=== PATIENT | male | born 1970 | race Caucasian/White ===

== ENCOUNTER 2016-11-28 06:58 | Inpatient (IN) | payer BC ==
[2016-11-23 18:11] LABS: BASOPHILS 0.2 %; BASOPHILS ABSOLUTE 0.01 10/3/uL (0.0-0.16); EOSINOPHILS 3.6 %; EOSINOPHILS ABSOLUTE 0.21 10/3/uL (0.0-0.53); HEMATOCRIT 41.3 % (40.0-51.0); IMMATURE GRANULOCYTES 0.2 %; IMMATURE GRANULOCYTES ABSOLUTE 0.01 10/3/uL (0.0-0.11); LYMPHOCYTES 36.9 %; LYMPHOCYTES ABSOLUTE 2.13 10/3/uL (0.67-4.30); MANUAL DIFF NO %; MEAN CORPUS HGB CONC 33.9 g/dL (32.0-36.0); MEAN CORPUSCULAR HEMOGLOB 28.8 pg (26.0-34.0); MEAN PLATELET VOLUME 10.7 fL (9.2-13.0); MONOCYTES ABSOLUTE 0.29 10/3/uL (0.21-1.20); NEUTROPHILS 54.1 %; NEUTROPHILS ABSOLUTE 3.12 10/3/uL (2.02-8.40); PLATELET COUNT 222 10/3/uL (150-400); RBC DISTRIBUTION WIDTH 12.9 % (12.0-16.0); RED CELL COUNT 4.86 10/6/uL (4.7-6.1); WHITE BLOOD CELLS 5.8 10/3/uL (4.5-10.5)
[2016-11-23 18:29] LABS: A/G RATIO 1.4 (0.7-1.9); ALBUMIN 4.6 G/DL (3.5-5.0); ALKALINE PHOSPHATASE 80 U/L (45-117); CHLORIDE, SERUM 104 MMOL/L (96-112); CO2 (CARBON DIOXIDE) 26 MMOL/L (24-34); CREATININE 0.72 MG/DL (0.70-1.30); GFR AFRICAN AMERICAN 128 ML/MIN (>=60); GFR NON AFRICAN AMERICAN 110 ML/MIN (>=60); GLOBULIN 3.2 G/DL (2.5-4.1); GLUCOSE, SERUM 152 MG/DL (60-99); IRON BINDING CAPACITY 459 MCG/DL (250-450); POTASSIUM, SERUM 4.6 MMOL/L (3.5-5.3); SGOT(AST) 45 U/L (5-40); SGPT(ALT) 70 U/L (5-65); SODIUM, SERUM 137 MMOL/L (135-148); TOTAL BILIRUBIN 0.6 MG/DL (0-1.2); TOTAL PROTEIN 7.8 G/DL (6.0-8.5)
[2016-11-23 18:30] LABS: BUN (BLOOD UREA NITROGEN) 17 MG/DL (6-23)
[2016-11-23 18:56] LABS: ASCORBIC ACID (UR NOT ORDER) 40 (NEG); BILIRUBIN, URINE NEGATIVE (NEG); KETONE, URINE TRACE MG/DL (NEG); LEUKOCYTE ESTERASE(NOT OR NEG (NEG); WBC (NOT ORDERED) (RFLEX) 1 (0-5)
--- NOTE | ~2016-11-28 | OP ---
Record Of Operation [facility] [address] [place]. [address] NAME: LITZY CONTEH : 66 STATUS : ADM IN PAT#: [id number] AGE: 46 ADM/REG DATE : 11/28/16 MR#: [id number] REPORT SERV DATE: 12/03/16 DICTATED BY: LITZY SALDAÑA DATE: 12/03/16 REPORT STATUS : Draft TRANSCRIBED BY: MODL DATE: 12/03/16 DATE OF PROCEDURE: 11/28/2016 PREOPERATIVE DIAGNOSES: 1. Aortic valve stenosis with insufficiency. 2. Bicuspid aortic valve. 3. Type 2 cqz-aknbzqu-idmajprrq diabetes mellitus. 4. Hypertension. 5. Hyperlipidemia. 6. Obesity. 7. Syncope. POSTOPERATIVE DIAGNOSES: 1. Aortic valve stenosis with insufficiency. 2. Bicuspid aortic valve. 3. Type 2 dvg-gkiqfww-vdefctotb diabetes mellitus. 4. Hypertension. 5. Hyperlipidemia. 6. Obesity. 7. Syncope. PROCEDURE PERFORMED: 1. Minimally invasive aortic valve replacement using a 27 mm pericardial valve (Magna Ease). 2. Internal rigid fixation of the sternum using titanium plate and screws. 3. Transesophageal echocardiography. SURGEON: Litzy Saldaña M.D. ASSISTANTS: Shannan Osullivan and Cortez Mcghee. ANESTHESIA: General with Dr. Mayen. ELEVATOR WORKER: Gabino Talley M.D. INDICATIONS: This is a 46-year-old gentleman, who has a history of a heart murmur and known aortic valve stenosis with bicuspid valve. His gradient across this valve has been worsening. Most recent valve area was 0.9 sq cm. Peak velocity across the valve is 4.3 m/sec. At catheterization, his valve area was estimated at 0.8 cm2 with PA pressures that were mildly elevated at 35 or 20. We saw the patient in our office and discussed possible aortic valve replacement. After lengthy discussion of operations, its indication and risks, he wished to proceed. Preoperative STS risk of mortality less than 2% and morbidity mortality less than 10% were shared with the patient and family. The patient preferred a tissue prosthesis. FINDINGS AT OPERATION: Record Of Operation [facility] [address] [place]. [address] NAME: LITZY CONTEH : 66 STATUS : ADM IN PAT#: [id number] AGE: 46 ADM/REG DATE : 11/28/16 MR#: [id number] REPORT SERV DATE: 12/03/16 DICTATED BY: LITZY SALDAÑA DATE: 12/03/16 REPORT STATUS : Draft TRANSCRIBED BY: GELA DATE: 12/03/16 1. Cross-clamp 100 minutes. Total pump time 137 minutes. Mcc solution was used. 2. The patient had a bicuspid aortic valve with three rudimentary commissural posts. There was complete fusion of the left and right coronary cusps. Coronary anatomy was relatively normal. There was mild dilation of the noncoronary sinus, but no aneurysm formation was noted. 3. A 27 mm pericardial valve was implanted (Magna Ease). Eighteen Cor-Knots were used to secure this valve in place. 4. We used a large titanium ladder plate with twelve 12 mm screws to reapproximate the sternum. 5. Transesophageal echocardiography at operation demonstrated severe LVH. Normal left ventricular function. Aortic prosthesis was well seated without perivalvular leak. There was no significant mitral insufficiency. PATHOLOGIC SPECIMENS: Include aortic valve leaflets. DESCRIPTION OF PROCEDURE: The patient was brought to the operating suite. General anesthesia was induced. Airway was secured with an endotracheal tube. Lines were secured by Anesthesia. Staples catheter was placed. The patient's chest, abdomen, groin, and legs were prepped with Hibiclens and ChloraPrep, and draped with Ioban sterile sheets. SAMUEL probe was placed by Dr. Bearden, and examination carried out as discussed above. An upper midline partial sternal incision was made just about 6-8 cm in length. This was carried through subcutaneous tissue and down to the sternum. We then divided the sternum from the sternal notch down to the first intercostal space below the angle of Alek. The sternum was transected horizontally at this point. Then, a retractor was placed. Lines were passed on the field for cardiopulmonary bypass and cleared of air. The pericardium was opened from the innominate vein down to the limits of this partial sternotomy and then tacked to the sides of the chest wall. Heparin was administered by Anesthesia. Cannulation pursestring sutures were placed and cannulation was carried out in routine manner. The aorta was then cross clamped. Initial dose of cold crystalloid cardioplegia was given in an antegrade fashion down the aortic root. An LV vent was placed through the right superior pulmonary vein and directed into the left ventricle through the mitral valve and secured. Following the first dose of cardioplegia, a hockey-stick type aortotomy incision was made. The aortic valve and the aortic root was inspected as discussed above. This was a bicuspid valve with heavy calcifications and stenosis. The aortic valve was excised and calcifications were removed from the annulus and some of the calcifications had descended onto the anterior leaflet of the mitral valve were likewise removed. Once the annulus was completely debrided of all calcium, the ascending aorta and left ventricle were irrigated copiously with iced saline to remove any particular matter. Coronary anatomy appeared relatively normal. There were three rudimentary cuffs. Then, the valve was sized. A 27 mm pericardial valve was selected (Magna Ease). Interrupted pledgeted horizontal mattress sutures of 2-0 Tycron placed circumferentially about the mitral valve annulus. Pledgets were on the ventricular side. The sutures were passed through the sewing cuff of the valve. This was lowered into position and each of the sutures individually secured and divided using a Cor-Knot device. A total of 18 Cor-Knots were utilized. We then inspected the valve, appeared to be well seated and there was no obstruction of the coronary vessels. Record Of Operation [address] [place]. [address] NAME: LITZY CONTEH JR : 66 STATUS : ADM IN [facility]#: [id number] AGE: 46 ADM/REG DATE : 11/28/16 MR#: [id number] REPORT SERV DATE: 12/03/16 DICTATED BY: LITZY SALDAÑA DATE: 12/03/16 REPORT STATUS : Draft TRANSCRIBED BY: MODL DATE: 12/03/16 Warming was begun. The aortotomy incision was then closed in a two-layer fashion with running pledgeted suture of 5-0 Prolene. The patient was placed in Trendelenburg. The ascending aorta and left ventricle were de- aired. The aortic cross-clamp was removed. Suture lines were inspected and made hemostatic. Ventilation was begun. Ventricular and atrial pacing wires were placed and the heart was initially paced in AV sequential fashion, this was later changed to atrial pacing only at a rate of 80. When the heart demonstrated good contractility, it was allowed to fill and eject. When deairing was completed, the patient was taken out of Trendelenburg and LV vent removed and these pursestring sutures tied. The ascending aortic vent was likewise removed and these pursestring sutures tied and reinforced. The patient was weaned from cardiopulmonary bypass with minimal inotropic support. The venous cannula was removed and these pursestring sutures tied. SAMUEL examination demonstrated good ventricular function with an aortic valve prosthesis that was well seated without perivalvular leak. There was no significant mitral insufficiency. Protamine was administered by Anesthesia and following a period of hemodynamic stability, the aortic cannula was removed and these pursestring sutures tied and reinforced. The patient continued do well and chest was irrigated copiously with saline. Meticulous hemostasis was obtained. Hemasorb was placed along the cut edges of the sternum. Then, a 32-Chadian chest tube was placed in the right pleural cavity and brought into the upper middle mediastinum and secured to the chest wall. The partial sternotomy was then closed. Four sternal wires were utilized to reapproximate the sternum longitudinally. The transverse sternotomy was reapproximated and this was held in place with a large ladder plate and 12 titanium screws. The clavipectoral fascia was reapproximated with #1 Stratafix. The subcutaneous tissue was closed and skin was closed in subcuticular fashion. The patient tolerated the procedure well. There were no complications. Sponge and needle counts were correct. DISPOSITION: The patient was left intubated, sedated, and transported to the Intensive Care Unit in stable condition. KINGSTON/GELA Litzy Saldaña M.D. / [id number] Record Of Operation [address] [address] NAME: CONTEHLITZY JR : 66 STATUS : ADM IN [facility]#: [id number] AGE: 46 ADM/REG DATE : 11/28/16 MR#: [id number] REPORT SERV DATE: 12/03/16 DICTATED BY: LITZY SALDAÑA DATE: 12/03/16 REPORT STATUS : Draft TRANSCRIBED BY: GELA DATE: 12/03/16 CC: Litzy Saldaña M.D. Jude Plunkett M.D. Gabino Talley M.D.
--- NOTE | ~2016-11-28 | HP ---
History And Physical [place] [id number] [facility] [place]. [address] NAME: LITZY CONTEH JR : 66 STATUS : ADM IN [facility]#: [id number] AGE: 46 ADM/REG DATE : 11/28/16 MR#: [id number] REPORT SERV DATE: 11/29/16 DICTATED BY: BARRINGTON ARMSTRONG DATE: 11/29/16 REPORT STATUS : Draft TRANSCRIBED BY: MODMahnaz DATE: 11/29/16 DATE OF ADMISSION: 11/28/2016 REASON FOR CONSULTATION: Diabetic management. HISTORY OF PRESENT ILLNESS: This is a pleasant 46-year-old white male, who reports that his primary care, who is Dr. Jude Plunkett, heard a heart murmur on exam and followed this closely for some time, but eventually, he was referred to dry room attendant, Dr. Talley, whom he saw in 07/2016. Testing was performed showing a bicuspid aortic valve. He was subsequently referred to Dr. Saldaña, and is now status post a minimally invasive aortic valve replacement. He states that he was experiencing some progressively worsening activity intolerance and dyspnea with exertion and also had had some fainting spells, but denied any chest pain, denied any edema development as well. As stated, hospitalist has been consulted for diabetic management post surgery. PAST MEDICAL HISTORY: Includes hypertension, diabetes, seasonal allergies, arthritis, GERD. SURGICAL HISTORY: Ulnar nerve surgery bilaterally, cholecystectomy, and left shoulder surgery for a bone spur. SOCIAL HISTORY: He works as a electromechanical assembly technician. FAMILY HISTORY: On mother's side, diabetes. On father's side, coronary artery disease. MEDICATIONS: For his diabetes, he was only on metformin at home 500 mg twice a day. ALLERGIES: HE HAS NO KNOWN ALLERGIES. REVIEW OF SYSTEMS: 10 points negative except for pertinents that are mentioned in the above HPI. PHYSICAL EXAMINATION: GENERAL: He is alert and oriented x3. No focal deficits. He is drowsy, but cooperative and awake when spoken to. EYES: PERRLA is noted. Sclerae are clear. LUNGS: Clear, but somewhat diminished in the bases, otherwise, normal respiratory effort. CARDIOVASCULAR: No murmurs, rubs, or gallops appreciable. Regular rate and rhythm, sinus per the monitor. ABDOMEN: Soft and nontender with hypoactive bowel sounds. EXTREMITIES: He has some trace lower extremity edema, very minimal. Normal distal pulses. SKIN: Warm and dry. Blood. LABORATORY DATA: Blood sugars reviewed past 6 hours are 118, 119, 110, 105, 112, 116, and 108. Hemoglobin A1c of 7.8. He did receive 500 mg IV Solu-Medrol perioperatively. ASSESSMENT: History And Physical [address]. [address] NAME: LITZY CONTEH JR : 66 STATUS : ADM IN PAT#: [id number] AGE: 46 ADM/REG DATE : 11/28/16 MR#: [id number] REPORT SERV DATE: 11/29/16 DICTATED BY: BARRINGTON ARMSTRONG DATE: 11/29/16 REPORT STATUS : Draft TRANSCRIBED BY: GELA DATE: 11/29/16 1. Diabetes type 2. A1c is 7.8. 2. Bicuspid aortic valve, aortic stenosis and insufficiency, status post minimally invasive AVR. 3. Hypertension history. 4. Gastroesophageal reflux disease. PLAN: We will utilize IV insulin and subcutaneous insulin via the order set with hopes of transitioning off IV insulin within the next 24 hours, but he is requiring a tremendous amount of IV insulin approximately 240 units in the past 24 hours. Hopefully, we will be able to resume metformin in the next day or so, and plan at this point is no insulin, but likely we will increase his metformin at discharge to 1000 mg twice a day. Otherwise, he is being monitored by Cardiology and Cardiothoracic Surgery, mobilization, incentive spirometry, and some diuresis today. We thank you for this consultation and we will follow along with you. JEANNA/EGLA Barrington Armstrong NP / [id number] CC: Litzy Saldaña M.D.
--- NOTE | ~2016-11-28 | HP ---
History And Physical [place] [id number] [facility] [place]. [address] NAME: LITZY CONTEH JR : 66 STATUS : DIS IN PAT#: [id number] AGE: 46 ADM/REG DATE : 11/28/16 MR#: [id number] REPORT SERV DATE: 01/30/17 DICTATED BY: ESTHER SCRUGGS DATE: 01/29/17 REPORT STATUS : Draft TRANSCRIBED BY: MODMahnaz DATE: 01/29/17 DATE OF ADMISSION: 11/28/2016 CHIEF COMPLAINT: Syncopal episode. HISTORY OF PRESENT ILLNESS: Mr. Conteh is a pleasant 46-year-old, obese white male, who works at [employer] in [place]. The patient was noted to have a heart murmur by his primary care physician, Dr. Jude Plunkett. He underwent further testing with echocardiogram and CTA of the chest. On echocardiogram, he was noted to have significant aortic valve stenosis with aortic valve area calculated at 0.9 sq cm and peak velocity across the valve of 4.3 m/sec. The valve was also noted to be bicuspid and severely calcified. He did have a CT of the chest that demonstrated a heavily calcified aortic valve. There was no evidence of ascending aortic aneurysm or dilated aortic root. There was also no evidence of dissection. The patient was referred to Dr. Saldaña by Dr. Gabino Talley and underwent coronary artery arteriogram and was noted to have severe aortic valve stenosis with a valve area of 0.8 sq cm, mean aortic valve gradient was 48 mmHg, PA pressures were mildly elevated at 35/20. The patient was asked to be seen in the office for possible aortic valve replacement. 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 During one of his trips within the last several months, he was noted to have a syncopal episode. He thinks that he has had anywhere from three to four syncopal episodes over the past 10-year period. These all occurred while he was participating in air travel for his job. The patient also has a history of dyspnea on exertion and fatigue. He denies anginal symptoms. He states that his shortness of breath symptoms resolved with rest. He denies signs and symptoms of stroke, orthopnea, paroxysmal nocturnal dyspnea, palpitations, or peripheral edema. He states that he does not have a family history of aortic valve problem. PAST MEDICAL HISTORY: Significant for: 1. Obesity. 2. Aortic stenosis. 3. Hypertension. 4. Dyslipidemia. 5. Type 2 diabetes mellitus. 6. Syncope. FAMILY HISTORY: He has a mother, who has a history of both diabetes and hypertension. His mother is still alive. SOCIAL HISTORY: The patient is , and he does use tobacco on occasion. He does consume alcohol on occasional basis. He denies history of illicit drug use. He does consume caffeine and drinks tea anywhere from two cups a day of tea or coffee. ALLERGIES: NO KNOWN ALLERGIES. MEDICATIONS: Current list of medications includes: History And Physical [address] [address] NAME: LITZY CONTEH JR : 66 STATUS : DIS IN [facility]#: [id number] AGE: 46 ADM/REG DATE : 11/28/16 MR#: [id number] REPORT SERV DATE: 01/30/17 DICTATED BY: ESTHER SCRUGGS DATE: 01/29/17 REPORT STATUS : Draft TRANSCRIBED BY: GELA DATE: 01/29/17 1. Aspirin 81 mg once daily. 2. CoQ10 daily. 3. Metformin 500 mg twice daily with meals. 4. Metformin 25 mg twice daily. 5. Multivitamin one tablet daily. 6. Naproxen 250 mg three times daily with food. 7. Niacin 500 mg daily. 8. Omeprazole 20 mg delayed release. 9. Tekturna 300 mg daily. 10.Tizanidine 4 mg as needed. 11.Vitamin C 500 mg daily. 12.Zyrtec 10 mg one tablet daily. REVIEW OF SYSTEMS: CONSTITUTIONAL: Negative for fever. EYES: Negative for visual changes. ENT: Negative for hearing loss. RESPIRATORY: Negative for snoring or hemoptysis. CARDIOLOGY: Negative for diaphoresis. Positive for syncope and near syncopal episodes. VASCULAR: Negative for claudication or edema. GASTROINTESTINAL: Negative for reflux or bleeding. GENITOURINARY: Negative for hematuria or nocturia. ENDOCRINE: Negative for goiter or tremors. NEUROLOGIC: Negative for dizziness, memory loss, or seizures. PSYCHIATRIC: Negative for hallucination. DERMATOLOGICAL: Negative for rash or skin sores. MUSCULOSKELETAL: Negative for joint pain or myalgias. HEMATOLOGY: Negative for acute anemia or thrombocytopenia. PHYSICAL EXAMINATION: VITAL SIGNS: Include pulse rate of 82, blood pressure of 137/91 in the sitting position, and the patient's respiratory rate is 16. His weight is 70 inches and he is 225 pounds with a calculated BMI of 32.5. CONSTITUTIONAL: No acute distress. He is well nourished and well developed. EYES: He has bilateral normal conjunctivae. Clear sclera bilaterally. Pupils are equal, round, and reactive to light. NOSE AND MOUTH: He has moist oral mucosa without any cyanosis or pallor. NECK: His thyroid shows no evidence of enlargement. He has normal neck range of motion and no evidence of jugular vein distention. RESPIRATORY: His respirations are nonlabored. He has clear breath sounds throughout. He is absent of wheezes, rhonchi, or rale. HEART: Rhythm is regular. His PMI is nondisplaced. He has normal S1 and S2 heart sounds. He does have a three to four systolic ejection murmur at the right upper sternal border. VASCULAR: Carotid: He has normal 2+ carotid pulses bilaterally without any evidence of any murmur. He has normal dorsalis pedis and posterior tibial pulses. ABDOMEN: His abdomen is soft, round, and nontender without any evidence of hepatic or splenomegaly. He has active bowel sounds. History And Physical [address] [address] NAME: LITZY CONTEH JR : 66 STATUS : DIS IN PAT#: [id number] AGE: 46 ADM/REG DATE : 11/28/16 MR#: [id number] REPORT SERV DATE: 01/30/17 DICTATED BY: ESTHER SCRUGGS DATE: 01/29/17 REPORT STATUS : Draft TRANSCRIBED BY: MODL DATE: 01/29/17 SKIN: Warm, dry, and intact. There is no evidence of any bruising, ulcers, or venous stasis. MUSCULOSKELETAL: The patient has a normal gait and is able to exercise. EXTREMITIES: Without any lower extremity edema, ischemic ulcers, or evidence of cyanosis or clubbing. NEUROLOGIC: He is awake, alert, and oriented x3 without any altered level of consciousness noted. PSYCHIATRIC: He is oriented to time, person, place, and he has appropriate mood and affect. IMPRESSION: 1. Nonrheumatic aortic valve disease. 2. Type 2 diabetes mellitus without complications. 3. Hypertension. 4. Hyperlipidemia. 5. Syncope. 6. Obesity. PLAN: The patient is a 46-year-old, healthy, type 2 jcm-fzkuofv-osxvzhdqn diabetic with moderate obesity and severe aortic valve stenosis and possible bicuspid aortic valve. The patient has preserved ejection fraction on echocardiogram at 60%. At this time, the patient was noted to be a good candidate for TAVR as he has STS score with a predictive risk of only 0.47% and a mortality risk of 6.4%. Dr. Saldaña discussed with the patient in the office and the need for a minimally invasive aortic valve replacement as well as a rigid fixation of the sternum and application of titanium plate and screws with intraoperative transesophageal echocardiogram. The risks were discussed with the patient, and they include bleeding, infection, pneumonia, blood transfusion, kidney or liver damage, arrhythmias, need for pacemaker, heart attack, stroke, mediastinitis, and DVT with pulmonary emboli, and among other complications. The patient verbalizes understanding of these risks and is willing to proceed further with surgery. At this time, surgery has been scheduled at [facility] for 11/28/2016. LAITH/GELA Esther Scruggs NP / [id number] CC: Meggan Sanchez M.D.
[~2016-11-28 06:58] MED LIST: ASAB PO; CO Q-10100 MG PO; GLUCPH PO; LOP25 PO; MULTIPLE VIT PO; NAP250 PO; NIACIN 500 PO; PRILO PO; TEKTURNA300 MG PO; ZANAFLEX 4 MG TA4 MG PO; ZYRTEC ALLGY10 MG PO
[2016-11-28 14:52] LABS: BE (BASE EXCESS) -4.4 MEQ/L (0 +/- 2.5); CARBOXYHEMOGLOBIN 0.3 % (0-3); HCO3 (ACTUAL BICARBONATE) 20.6 MEQ/L (23-27); HEMOBLOGIN CONTENT 13.5 G/DL (14-18); INSTRUMENT SERIAL # 11843; METHEMOGLOBIN 0.6 % (0-3); MODE SIMV; O2 CONTENT 18.8 VOL% (18-24); OPERATOR ID 32214; PCO2 (CO2 TENSION) 38 MMHG (35-45); PO2 (O2 TENSION) 157 MMHG (79-93); PRESSURE SUPPORT 7 cm.H2O; SAMPLE Arterial; TIDAL VOLUME 700 ML; pH 7.35 (7.37-7.43)
[2016-11-28 15:27] LABS: HEMATOCRIT 37.3 % (40.0-51.0); HEMOGLOBIN 12.5 g/dL (13.6-17.8)
[2016-11-28 15:31] LABS: PLATELET COUNT 137 10/3/uL (150-400)
[2016-11-28 15:32] LABS: INTERNATIONAL NORMAL RATI 1.4 UNITS (-); PARTIAL THROMBO TIME 38.5 SEC (22.5-37.2); PROTIME (NOT ORD) 17.2 SEC (12.0-14.5)
[2016-11-28 15:38] LABS: BUN (BLOOD UREA NITROGEN) 12 MG/DL (6-23); CALCIUM, SERUM 7.9 MG/DL (8.5-10.4); CHLORIDE, SERUM 110 MMOL/L (96-112); CO2 (CARBON DIOXIDE) 22 MMOL/L (24-34); CREATININE 0.88 MG/DL (0.70-1.30); GFR AFRICAN AMERICAN 118 ML/MIN (>=60); GFR NON AFRICAN AMERICAN 102 ML/MIN (>=60); GLUCOSE, SERUM 137 MG/DL (60-99); POTASSIUM, SERUM 4.3 MMOL/L (3.5-5.3); SODIUM, SERUM 140 MMOL/L (135-148)
[2016-11-28 18:43] LABS: ALLENS TEST Pos; BE (BASE EXCESS) -4.4 MEQ/L (0 +/- 2.5); CARBOXYHEMOGLOBIN 0.3 % (0-3); DEVICE NC; HEMOBLOGIN CONTENT 14.3 G/DL (14-18); INSTRUMENT SERIAL # 11843; METHEMOGLOBIN 0.6 % (0-3); OPERATOR ID 32214; PCO2 (CO2 TENSION) 40 MMHG (35-45); PO2 (O2 TENSION) 82 MMHG (79-93); SAMPLE Arterial; pH 7.34 (7.37-7.43)
[2016-11-28 21:21] LABS: HEMATOCRIT 38.4 % (40.0-51.0); HEMOGLOBIN 13.1 g/dL (13.6-17.8)
[2016-11-28 21:37] LABS: BUN (BLOOD UREA NITROGEN) 13 MG/DL (6-23); CHLORIDE, SERUM 109 MMOL/L (96-112); CO2 (CARBON DIOXIDE) 19 MMOL/L (24-34); CREATININE 0.78 MG/DL (0.70-1.30); GFR AFRICAN AMERICAN 124 ML/MIN (>=60); GFR NON AFRICAN AMERICAN 107 ML/MIN (>=60); GLUCOSE, SERUM 154 MG/DL (60-99); SODIUM, SERUM 136 MMOL/L (135-148)
[2016-11-28 21:38] LABS: CALCIUM, SERUM 8.9 MG/DL (8.5-10.4)
[2016-11-29 03:26] LABS: BASOPHILS 0 %; EOSINOPHILS 0 %; HEMATOCRIT 37.3 % (40.0-51.0); HEMOGLOBIN 12.9 g/dL (13.6-17.8); IMMATURE GRANULOCYTES 0.4 %; IMMATURE GRANULOCYTES ABSOLUTE 0.04 10/3/uL (0.0-0.11); LYMPHOCYTES 6.3 %; LYMPHOCYTES ABSOLUTE 0.68 10/3/uL (0.67-4.30); MANUAL DIFF NO %; MEAN CORPUS HGB CONC 34.6 g/dL (32.0-36.0); MEAN CORPUSCULAR HEMOGLOB 29.4 pg (26.0-34.0); MEAN PLATELET VOLUME 10.4 fL (9.2-13.0); MONOCYTES 9.2 %; NEUTROPHILS 84.1 %; NEUTROPHILS ABSOLUTE 9.15 10/3/uL (2.02-8.40); PLATELET COUNT 179 10/3/uL (150-400); RBC DISTRIBUTION WIDTH 12.6 % (12.0-16.0); RED CELL COUNT 4.39 10/6/uL (4.7-6.1); WHITE BLOOD CELLS 10.9 10/3/uL (4.5-10.5)
[2016-11-29 03:38] LABS: CALCIUM, SERUM 8.6 MG/DL (8.5-10.4); CHLORIDE, SERUM 110 MMOL/L (96-112); CREATININE 0.78 MG/DL (0.70-1.30); GFR AFRICAN AMERICAN 124 ML/MIN (>=60); GFR NON AFRICAN AMERICAN 107 ML/MIN (>=60); POTASSIUM, SERUM 4.5 MMOL/L (3.5-5.3); SODIUM, SERUM 138 MMOL/L (135-148)
[2016-11-29 03:39] LABS: BUN (BLOOD UREA NITROGEN) 17 MG/DL (6-23); CO2 (CARBON DIOXIDE) 23 MMOL/L (24-34); GLUCOSE, SERUM 115 MG/DL (60-99)
[2016-11-29 17:22] LABS: HEMATOCRIT 34.7 % (40.0-51.0); HEMOGLOBIN 11.7 g/dL (13.6-17.8)
[2016-11-30 05:02] LABS: BASOPHILS 0.1 %; BASOPHILS ABSOLUTE 0.01 10/3/uL (0.0-0.16); EOSINOPHILS 0 %; HEMATOCRIT 33.6 % (40.0-51.0); HEMOGLOBIN 11.3 g/dL (13.6-17.8); IMMATURE GRANULOCYTES 0.2 %; IMMATURE GRANULOCYTES ABSOLUTE 0.03 10/3/uL (0.0-0.11); LYMPHOCYTES 8.7 %; LYMPHOCYTES ABSOLUTE 1.11 10/3/uL (0.67-4.30); MEAN CORPUS HGB CONC 33.6 g/dL (32.0-36.0); MEAN CORPUSCULAR HEMOGLOB 29.3 pg (26.0-34.0); MONOCYTES 12.1 %; MONOCYTES ABSOLUTE 1.54 10/3/uL (0.21-1.20); NEUTROPHILS 78.9 %; NEUTROPHILS ABSOLUTE 10.01 10/3/uL (2.02-8.40); PLATELET COUNT 160 10/3/uL (150-400); RBC DISTRIBUTION WIDTH 13.3 % (12.0-16.0); RED CELL COUNT 3.86 10/6/uL (4.7-6.1); WHITE BLOOD CELLS 12.7 10/3/uL (4.5-10.5)
[2016-11-30 05:03] LABS: MANUAL DIFF NO %
[2016-11-30 05:18] LABS: CALCIUM, SERUM 8.5 MG/DL (8.5-10.4); CHLORIDE, SERUM 105 MMOL/L (96-112); CO2 (CARBON DIOXIDE) 24 MMOL/L (24-34); CREATININE 0.76 MG/DL (0.70-1.30); GFR AFRICAN AMERICAN 125 ML/MIN (>=60); GFR NON AFRICAN AMERICAN 108 ML/MIN (>=60); POTASSIUM, SERUM 4.7 MMOL/L (3.5-5.3); SODIUM, SERUM 133 MMOL/L (135-148)
[2016-11-30 05:22] LABS: BUN (BLOOD UREA NITROGEN) 24 MG/DL (6-23); GLUCOSE, SERUM 162 MG/DL (60-99)
[2016-12-01 05:11] LABS: BASOPHILS 0.1 %; BASOPHILS ABSOLUTE 0.01 10/3/uL (0.0-0.16); EOSINOPHILS 0.1 %; EOSINOPHILS ABSOLUTE 0.01 10/3/uL (0.0-0.53); HEMATOCRIT 32.4 % (40.0-51.0); HEMOGLOBIN 10.7 g/dL (13.6-17.8); IMMATURE GRANULOCYTES 0.2 %; IMMATURE GRANULOCYTES ABSOLUTE 0.03 10/3/uL (0.0-0.11); LYMPHOCYTES 15.4 %; LYMPHOCYTES ABSOLUTE 1.97 10/3/uL (0.67-4.30); MEAN CORPUSCULAR HEMOGLOB 28.8 pg (26.0-34.0); MEAN CORPUSCULAR VOLUME 87.1 fL (80-100); MEAN PLATELET VOLUME 11.4 fL (9.2-13.0); MONOCYTES 12.1 %; MONOCYTES ABSOLUTE 1.55 10/3/uL (0.21-1.20); NEUTROPHILS 72.1 %; NEUTROPHILS ABSOLUTE 9.26 10/3/uL (2.02-8.40); PLATELET COUNT 204 10/3/uL (150-400); RBC DISTRIBUTION WIDTH 13.5 % (12.0-16.0); RED CELL COUNT 3.72 10/6/uL (4.7-6.1); WHITE BLOOD CELLS 12.8 10/3/uL (4.5-10.5)
[2016-12-01 05:20] LABS: MANUAL DIFF NO %
[2016-12-01 05:24] LABS: BUN (BLOOD UREA NITROGEN) 26 MG/DL (6-23); CALCIUM, SERUM 9.1 MG/DL (8.5-10.4); CHLORIDE, SERUM 99 MMOL/L (96-112); CO2 (CARBON DIOXIDE) 27 MMOL/L (24-34); CREATININE 0.87 MG/DL (0.70-1.30); GFR AFRICAN AMERICAN 118 ML/MIN (>=60); GFR NON AFRICAN AMERICAN 102 ML/MIN (>=60); GLUCOSE, SERUM 172 MG/DL (60-99); POTASSIUM, SERUM 5.1 MMOL/L (3.5-5.3); SODIUM, SERUM 133 MMOL/L (135-148)
[2016-12-01 12:52] LABS: INTERNATIONAL NORMAL RATI 1.2 UNITS (-); PROTIME (NOT ORD) 15.2 SEC (12.0-14.5)
[2016-12-02 04:35] LABS: BASOPHILS 0 %; EOSINOPHILS 0.7 %; EOSINOPHILS ABSOLUTE 0.08 10/3/uL (0.0-0.53); HEMATOCRIT 30.9 % (40.0-51.0); HEMOGLOBIN 10.4 g/dL (13.6-17.8); IMMATURE GRANULOCYTES 0.3 %; IMMATURE GRANULOCYTES ABSOLUTE 0.03 10/3/uL (0.0-0.11); LYMPHOCYTES 20.2 %; LYMPHOCYTES ABSOLUTE 2.36 10/3/uL (0.67-4.30); MEAN CORPUS HGB CONC 33.7 g/dL (32.0-36.0); MEAN CORPUSCULAR HEMOGLOB 29.1 pg (26.0-34.0); MEAN CORPUSCULAR VOLUME 86.3 fL (80-100); MONOCYTES 11.4 %; MONOCYTES ABSOLUTE 1.33 10/3/uL (0.21-1.20); NEUTROPHILS 67.4 %; NEUTROPHILS ABSOLUTE 7.87 10/3/uL (2.02-8.40); PLATELET COUNT 238 10/3/uL (150-400); RBC DISTRIBUTION WIDTH 13.4 % (12.0-16.0); RED CELL COUNT 3.58 10/6/uL (4.7-6.1); WHITE BLOOD CELLS 11.7 10/3/uL (4.5-10.5)
[2016-12-02 04:36] LABS: INTERNATIONAL NORMAL RATI 1.2 UNITS (-); PROTIME (NOT ORD) 15.5 SEC (12.0-14.5)
[2016-12-02 04:43] LABS: MANUAL DIFF NO %
[2016-12-02 04:45] LABS: CALCIUM, SERUM 9.1 MG/DL (8.5-10.4); CHLORIDE, SERUM 96 MMOL/L (96-112); CO2 (CARBON DIOXIDE) 27 MMOL/L (24-34); POTASSIUM, SERUM 4.7 MMOL/L (3.5-5.3); SODIUM, SERUM 130 MMOL/L (135-148)
[2016-12-02 04:46] LABS: BUN (BLOOD UREA NITROGEN) 47 MG/DL (6-23); CREATININE 1.54 MG/DL (0.70-1.30); GFR AFRICAN AMERICAN 61 ML/MIN (>=60); GFR NON AFRICAN AMERICAN 53 ML/MIN (>=60); GLUCOSE, SERUM 116 MG/DL (60-99)
[2016-12-02 13:43] LABS: ASCORBIC ACID (UR NOT ORDER) 40 (NEG); BILIRUBIN, URINE NEGATIVE (NEG); KETONE, URINE NEGATIVE (NEG); LEUKOCYTE ESTERASE(NOT OR NEG (NEG); WBC (NOT ORDERED) (RFLEX) 1 (0-5)
[2016-12-03 04:38] LABS: BASOPHILS 0.1 %; BASOPHILS ABSOLUTE 0.01 10/3/uL (0.0-0.16); EOSINOPHILS 1.7 %; EOSINOPHILS ABSOLUTE 0.13 10/3/uL (0.0-0.53); HEMATOCRIT 28.7 % (40.0-51.0); HEMOGLOBIN 9.7 g/dL (13.6-17.8); IMMATURE GRANULOCYTES 0.6 %; IMMATURE GRANULOCYTES ABSOLUTE 0.05 10/3/uL (0.0-0.11); LYMPHOCYTES 23.5 %; LYMPHOCYTES ABSOLUTE 1.85 10/3/uL (0.67-4.30); MEAN CORPUS HGB CONC 33.8 g/dL (32.0-36.0); MEAN CORPUSCULAR HEMOGLOB 29.2 pg (26.0-34.0); MEAN CORPUSCULAR VOLUME 86.4 fL (80-100); MEAN PLATELET VOLUME 10.2 fL (9.2-13.0); MONOCYTES 11.2 %; MONOCYTES ABSOLUTE 0.88 10/3/uL (0.21-1.20); NEUTROPHILS 62.9 %; NEUTROPHILS ABSOLUTE 4.95 10/3/uL (2.02-8.40); PLATELET COUNT 240 10/3/uL (150-400); RBC DISTRIBUTION WIDTH 13.3 % (12.0-16.0); RED CELL COUNT 3.32 10/6/uL (4.7-6.1); WHITE BLOOD CELLS 7.9 10/3/uL (4.5-10.5)
[2016-12-03 04:39] LABS: MANUAL DIFF NO %
[2016-12-03 04:40] LABS: INTERNATIONAL NORMAL RATI 1.2 UNITS (-); PROTIME (NOT ORD) 15.1 SEC (12.0-14.5)
[2016-12-03 04:48] LABS: BUN (BLOOD UREA NITROGEN) 22 MG/DL (6-23); CALCIUM, SERUM 8.7 MG/DL (8.5-10.4); CHLORIDE, SERUM 103 MMOL/L (96-112); CO2 (CARBON DIOXIDE) 27 MMOL/L (24-34); CREATININE 0.81 MG/DL (0.70-1.30); GFR AFRICAN AMERICAN 122 ML/MIN (>=60); GFR NON AFRICAN AMERICAN 105 ML/MIN (>=60); GLUCOSE, SERUM 125 MG/DL (60-99); POTASSIUM, SERUM 4.4 MMOL/L (3.5-5.3); SODIUM, SERUM 136 MMOL/L (135-148)
[2016-12-04 06:07] LABS: BASOPHILS 0.1 %; BASOPHILS ABSOLUTE 0.01 10/3/uL (0.0-0.16); EOSINOPHILS 2.5 %; HEMATOCRIT 29.2 % (40.0-51.0); HEMOGLOBIN 9.7 g/dL (13.6-17.8); IMMATURE GRANULOCYTES 1.1 %; IMMATURE GRANULOCYTES ABSOLUTE 0.09 10/3/uL (0.0-0.11); LYMPHOCYTES 24.2 %; LYMPHOCYTES ABSOLUTE 1.97 10/3/uL (0.67-4.30); MEAN CORPUS HGB CONC 33.2 g/dL (32.0-36.0); MEAN CORPUSCULAR HEMOGLOB 28.5 pg (26.0-34.0); MEAN CORPUSCULAR VOLUME 85.9 fL (80-100); MEAN PLATELET VOLUME 9.9 fL (9.2-13.0); MONOCYTES ABSOLUTE 0.81 10/3/uL (0.21-1.20); NEUTROPHILS 62.1 %; NEUTROPHILS ABSOLUTE 5.06 10/3/uL (2.02-8.40); PLATELET COUNT 259 10/3/uL (150-400); RBC DISTRIBUTION WIDTH 13.3 % (12.0-16.0); WHITE BLOOD CELLS 8.1 10/3/uL (4.5-10.5)
[2016-12-04 06:09] LABS: MANUAL DIFF NO %
[2016-12-04 06:18] LABS: CALCIUM, SERUM 8.8 MG/DL (8.5-10.4); CHLORIDE, SERUM 103 MMOL/L (96-112); CO2 (CARBON DIOXIDE) 30 MMOL/L (24-34); CREATININE 0.85 MG/DL (0.70-1.30); GFR AFRICAN AMERICAN 119 ML/MIN (>=60); GFR NON AFRICAN AMERICAN 103 ML/MIN (>=60); GLUCOSE, SERUM 132 MG/DL (60-99); INTERNATIONAL NORMAL RATI 1.3 UNITS (-); POTASSIUM, SERUM 4.6 MMOL/L (3.5-5.3); PROTIME (NOT ORD) 15.6 SEC (12.0-14.5); SODIUM, SERUM 136 MMOL/L (135-148)
[2016-12-04 06:22] LABS: BUN (BLOOD UREA NITROGEN) 11 MG/DL (6-23)
[2016-12-04] MEDS ORDERED: PRIN2.5 PO (12:36)
[2016-12-04] MEDS ORDERED: PERCOCET 10/3251 TAB PO (12:37)
[2016-12-04] MEDS ORDERED: L40 PO (12:38)
[2016-12-04] MEDS ORDERED: KLOR-CON20 MEQ PO (12:39)
[2016-12-04] MEDS ORDERED: LIPITOR40 PO (12:40)
[2016-12-04] MEDS ORDERED: COUMADIN7.5 MG PO (12:41)
== END 2016-12-04 16:21 | disposition home or self-care (01) | DRG 220 ==
LOC: SDC/OF 06:58 → CVICU 13:13 → 5NO 11-29 18:24
PROVIDERS: Nurse Practitioner Adult Health; Thoracic Surgery (Cardiothoracic Vascular Surgery)
PROC: B246ZZ4 Ultrasonography of Right and Left Heart, Transesophageal (ICD-10-PCS; 2016-11-28)
PROC: 02RF08Z Replacement of Aortic Valve with Zooplastic Tissue, Open Approach (ICD-10-PCS; principal; 2016-11-28 09:00)
PROC: 0PH000Z Insertion of Rigid Plate Internal Fixation Device into Sternum, Open Approach (ICD-10-PCS; 2016-11-28 09:00)
DX: Q23.1 Congenital insufficiency of aortic valve (principal); E87.1 Hypo-osmolality and hyponatremia; N17.9 Acute kidney failure, unspecified; Z68.32 Body mass index [BMI] 32.0-32.9, adult; I10 Essential (primary) hypertension; E11.9 Type 2 diabetes mellitus without complications; E66.9 Obesity, unspecified; D72.829 Elevated white blood cell count, unspecified; Z79.84 Long term (current) use of oral hypoglycemic drugs
CPT/HCPCS: 36415; 71010; 71020; 80048; 80053; 81001; 82330; 82803; 82805; 82947; 82962; 83036; 83550; 83735; 84132; 84295; 85014; 85018; 85025; 85049; 85347; 85610; 85730; 86850; 86900; 86901; 86920; 87641; 88305; 88311; 93005; 93312; 93320; 93325; 94002; 94640; 94660; 94770; A9270-GY; C1713; C1751; C1769; C1894; J0282; J0690; J1644; J1885; J1940; J2150; J2250; J2370; J2405; J2720; J2795; J2930; J3010; J3475; P9045; P9047